=== PATIENT | female | born 1995 | race Caucasian/White ===

== ENCOUNTER 2022-02-21 06:44 | Day surgery (SDC) | payer OTHER ==
[~2022-02-21] VITALS: Ht 165.1 cm; Wt 90.7 kg
[2022-02-21] MEDS ORDERED: PERCOCET 5-3251 EACH PO (12:59)
== END 2022-02-21 19:30 | disposition home or self-care (01) ==
LOC: CIR.AMB 06:44
PROVIDERS: ATTEND Surgery
DX: K64.2 Third degree hemorrhoids (principal); K62.89 Other specified diseases of anus and rectum; K62.5 Hemorrhage of anus and rectum; Z20.822 Contact with and (suspected) exposure to COVID-19; Z88.6 Allergy status to analgesic agent

== ENCOUNTER 2025-04-29 20:44 | Emergency (ER) | payer OTHER ==
[~2025-04-29] VITALS: Ht 165.1 cm; Wt 104.3 kg
[~2025-04-29 20:44] MED LIST: PERCOCET 5-3251 EACH PO
[2025-04-29] MEDS ORDERED: ACETAMINOPHEN 500 MG GEL..CAP PO ONE ×2 (23:30→23:34)
[2025-04-29] MEDS ORDERED: DEXAMETHASONE SODIUM PHOSPHATE 4 MG/ML VIAL IM ONE (23:30)
[2025-04-29] MEDS ORDERED: 8 HOUR650 MG PO (23:31)
[2025-04-29] MEDS ORDERED: DEXAMETHASONE SODIUM PHOSPHATE 4 MG/ML VIAL ONE (23:34)
== END 2025-04-29 23:48 | disposition home or self-care (01) ==
LOC: ER 20:44
DX: H72.91 Unspecified perforation of tympanic membrane, right ear (principal); Z88.6 Allergy status to analgesic agent; W22.8XXA Striking against or struck by other objects, initial encounter; Y93.89 Activity, other specified; Y92.89 Other specified places as the place of occurrence of the external cause